=== PATIENT | male | born 1980 | race Caucasian/White ===

== ENCOUNTER 2018-09-07 14:09 | Emergency (ER) | payer MEDICAID, SELFPAY ==
[2018-09-07 14:12] VITALS: BP 160/103; PULSE 112; RESP 14; TEMP 36.8; O2SAT 97; BMI 27.8
--- NOTE | 2018-09-07 14:21 | CM.ED ---
Social Work Note Pt sent by the counseling center and will need to be evaluated by the counseling center. KANNAN Askew, HOME ENERGY CONSULTANT
--- NOTE | 2018-09-07 14:39 | CM.ED ---
Social Work Note [facility] being consulted to review for potential admission for detox program. No mental health concerns presenting. PLAN: [facility] to evaluate. KANNAN Askew, HEMALATHA
--- NOTE | 2018-09-07 15:41 | ED.DEP ---
ED Disposition - Plan for ED Patient: Disposition: Home or Assisted Living Instructions: ED Alcohol Intoxication Referrals: Gulshan Grove FREIGHT TRAFFIC CONSULTANT-C [Primary Care Provider] - As Needed
--- NOTE | 2018-09-07 15:42 | DCINST.ED_ITS ---
ED Disposition - Plan for ED Patient: Disposition: Home or Assisted Living Instructions: ED Alcohol Intoxication Referrals: Gulshan Grove INSTRUMENTATION TECHNICIAN-C [Primary Care Provider] - As Needed
--- NOTE | 2018-09-07 15:42 | ED.VISSUMM ---
- ER Visit Summary Date of Service: 09/07/18 Chief Complaint: Requesting detox. History of Present Illness: The patient is a 37 M history of alcohol abuse for last 20 years. States is been alcoholic since he was 17. Patient states he drinks a half a gallon to 20% vodka every day. His last drink was about 9 AM this morning. He has been through detox multiple times in the last 6 months. Physical Examination: Well-appearing young male. Vital signs are stable. He is afebrile. No distress. HEENT exam unremarkable. Neck nontender. Lungs clear to auscultation bilaterally. Heart regular rate and rhythm no murmur. Abdomen soft nontender. Normal bowel sounds no peritoneal signs. Patient is moving all 4 extremities. Neurologically is awake and alert. Following commands. Test Results: None Emergency Department Course and Treatment: Evaluate the patient. They contacted [facility] who was able to get the patient in and will help find his detox at a facility in [place]. His significant other is going to drive and facility at this time. Treatment Plan: Follow-up with the detox facility and masculine. Disposition: Discharge Impression: Acute on chronic alcoholism Requesting detox Acute intoxication This note was generated with [employer] dictation software. It may contain incorrect words, spelling, and punctuation that were not noted in review of the chart prior to signing ED Disposition - Plan for ED Patient: Disposition: Home or Assisted Living Instructions: ED Alcohol Intoxication Referrals: Gulshan Grove NP-C [Primary Care Provider] - As Needed
--- NOTE | 2018-09-07 15:45 | ED.DCSUM_ITS ---
- ER Visit Summary Date of Service: 09/07/18 Chief Complaint: Requesting detox. History of Present Illness: The patient is a 37 M history of alcohol abuse for last 20 years. States is been alcoholic since he was 17. Patient states he drinks a half a gallon to 20% vodka every day. His last drink was about 9 AM this morning. He has been through detox multiple times in the last 6 months. Physical Examination: Well-appearing young male. Vital signs are stable. He is afebrile. No distress. HEENT exam unremarkable. Neck nontender. Lungs clear to auscultation bilaterally. Heart regular rate and rhythm no murmur. Abdomen soft nontender. Normal bowel sounds no peritoneal signs. Patient is moving all 4 extremities. Neurologically is awake and alert. Following commands. Test Results: None Emergency Department Course and Treatment: Evaluate the patient. They contacted the [facility] who was able to get the patient in and will help find his detox at a facility in [place]. His significant other is going to drive and facility at this time. Treatment Plan: Follow-up with the detox facility and masculine. Disposition: Discharge Impression: Acute on chronic alcoholism Requesting detox Acute intoxication This note was generated with [employer] dictation software. It may contain incorrect words, spelling, and punctuation that were not noted in review of the chart prior to signing ED Disposition - Plan for ED Patient: Disposition: Home or Assisted Living Instructions: ED Alcohol Intoxication Referrals: Gulshan Grove NP-C [Primary Care Provider] - As Needed
[2018-09-07 15:50] VITALS: BP 144/106; PULSE 109; RESP 14; O2SAT 96
--- NOTE | 2018-09-07 15:50 | ED.RN ---
pt given d/c instructions by dr. arroyo. [facility]. orellana stable in ed. no s/s of acute distress. pt ambulated without issue from department. girlfriend encourage to take pt directly to other facility. richard mari rn [id number]
== END 2018-09-07 15:54 | disposition home or self-care (01) ==
PROVIDERS: Emergency Provider Emergency Medicine; Family Provider Nurse Practitioner Primary Care; PCP Nurse Practitioner Primary Care
DX: F10.229 Alcohol dependence with intoxication, unspecified (principal); Y90.9 Presence of alcohol in blood, level not specified; F32.9 Major depressive disorder, single episode, unspecified; I10 Essential (primary) hypertension; F17.220 Nicotine dependence, chewing tobacco, uncomplicated; Z79.899 Other long term (current) drug therapy
CPT/HCPCS: 99282

== ENCOUNTER 2018-09-25 17:26 | Inpatient (IN) | payer MEDICAID, SELFPAY ==
[2018-09-25] VITALS (7 sets, daily range): BP systolic 138–158; BP diastolic 89–93; PULSE 80–105; RESP 16; TEMP 36.6–36.9; O2SAT 95–99; BMI 28.2; BMI 28.0
--- NOTE | 2018-09-25 18:08 | EKG12_ITS ---
Test Reason : Blood Pressure : / mmHG Vent. Rate : 088 BPM Atrial Rate : 088 BPM P-R Int : 150 ms QRS Dur : 112 ms QT Int : 378 ms P-R-T Axes : 050 051 046 degrees QTc Int : 457 ms Normal sinus rhythm Normal ECG Confirmed by PAM ESQUIVEL, LANETTE ([id number]), social media editor BRUCE LONGO ([id number]) on 09/27/2018 1:34:19 PM Referred By: Antonio Stock Confirmed By:LANETTE OROZCO MD
[2018-09-25] MEDS: chlordiazePOXIDE 25 MG Capsule 50 MG PO (18:29)
[2018-09-25] MEDS: 0.9% Normal Saline 1,000 ML 1000 ML IV (18:29)
[2018-09-25] MEDS: 0.9% Normal Saline 1,000 ML 150 ML IV (18:29)
[2018-09-25 18:44] LABS: Absolute Lymphocyte Count 1.91 X10^3/ul (0.83-4.51); Absolute Neutrophil Count 5.2 X10^3/uL (2.0-7.7); Basophil# 0.11 X10^3/uL; Basophil% 1.4 % (0-1); Eosinophil# 0.03 X10^3/uL; Eosinophils% 0.4 % (0-5); Hemoglobin 14.8 g/dl (13.0-16.5); Lymphocyte # 1.91 X10^3/ul (4.0); Lymphocyte % 24.3 % (19-41); Mean Corp Hgb Conc 32.9 g/gl (32-36); Mean Corpuscular Hgb 29.6 pg (27.0-32.0); Mean Platelet Vol. 8.7 fl (6.2-12.0); Monocyte# 0.54 X10^3/uL; Monocyte% 6.9 % (0-10); Neutrophil % 66.1 % (47-70); Platelet Count 337 K/mm3 (150-450); RBC Distribution Width SD 52.3 fl (35.1-43.9); White Blood Count 7.9 K/mm3 (4.4-11.0)
[2018-09-25 18:45] LABS: POSITIVE COUNT NO; POSITIVE DIFFERENTIAL NO; POSITIVE MORPHOLOGY NO
[2018-09-25 18:48] LABS: ALB/GLOB Ratio 1.1 RATIO (0.9-2.4); AST(SGOT) 29 U/L (15-37); Alanine Aminotransfer ALT/SGPT 40 U/L (16-61); Albumin, Serum 3.7 g/dL (3.2-5.0); Alkaline Phosphatase 77 U/L (45-117); Anion Gap 11 (5-15); BUN 12 mg/dL (7-18); BUN/Creat Ratio 14.1 RATIO (10-20); Calcium,Total 8.2 mg/dL (8.5-10.1); Chloride 104 mmol/L (98-107); Creatinine, Serum 0.85 mg/dL (0.70-1.30); EST Glomerular Filtration Rate 108 mL/min (>60); Est Glom Filt Rate - Afr Amer 130 mL/min (>60); Estimated Creatinine Clearance 139.69 ml/min; Globulin 3.3 g/dL (2.2-4.2); Glucose 95 mg/dL (74-106); Lipase 265 U/L (73-393); Potassium 3.4 mmol/L (3.5-5.1); Sodium Level 140 mmol/L (136-145)
[2018-09-25 18:54] LABS: Amphetamine Urine VISTA NEGATIVE (<1000 ng/mL); Barbiturate Urine VISTA POSITIVE (< 200 ng/mL); Benzodiazepine Urine VISTA POSITIVE (< 200 ng/mL); Cocaine Urine VISTA NEGATIVE (< 300 ng/mL); Ecstacy Urine VISTA NEGATIVE (< 500 ng/mL); Methadone Urine VISTA NEGATIVE (< 300 ng/mL); PCP Urine VISTA NEGATIVE (< 25 ng/mL); THC Urine VISTA NEGATIVE (< 50 ng/mL); Vista UDS pH Range 6
--- NOTE | 2018-09-25 19:02 | ED.VISSUMM ---
- ER Visit Summary Date of Service: 09/25/18 Chief Complaint: [Alcohol withdrawal] History of Present Illness: The patient is a 37 M [presents the emergency department with complaint of alcohol withdrawal. Patient states that he is an alcoholic and he had his last drink last night. Patient normally drinks 2/5 of vodka daily at the minimum. Patient states that he went through detox about 3 weeks ago. [facility] called [facility] and was told to come to the emergency department. Patient describes feeling shaky and anxious. He denies any abdominal pain or chest pain. He has had nausea but no vomiting.] Physical Examination: [HEENT-PERRLA, EOMI. Cranial nerves II through XII grossly intact. TMs clear. Mucous membranes moist. No adenopathy. Cardiovascular-regular and tachycardic. No murmurs auscultated. Lungs-clear to auscultation, chest wall stable without crepitus or subcu emphysema Abdomen-normoactive bowel sounds, soft, nontender, no rebound or rigidity, no peritoneal signs. Neuro [id number] and heel colon testing within normal limits, negative Romberg, negative pronator drift, fundi benign. Patient does have a fine tremor noted. Extremities-intact ?4, normal range of motion, normal pulses, atraumatic] Test Results: [EKG obtained on arrival showed a sinus rhythm with a ventricular rate of 88 bpm. CBC with differential obtained showed a white count of 7.9, hemoglobin 14.8, hematocrit 45, platelets 337. Chemistries were unremarkable. LFTs were normal. Toxicology screen was positive for benzos and barbiturates. Alcohol level is pending.] Emergency Department Course and Treatment: [Patient was given normal saline and was given Librium 50 mg p.o.] Treatment Plan: [Admit for alcohol withdrawal and for detox.] Disposition: [Admit] Impression: [Alcohol withdrawal] This note was generated with [employer] dictation software. It may contain incorrect words, spelling, and punctuation that were not noted in review of the chart prior to signing ED Disposition - Plan for ED Patient: Referrals: Gulshan Grove NP-C [Primary Care Provider] -
--- NOTE | 2018-09-25 19:06 | ED.DCSUM_ITS ---
- ER Visit Summary Date of Service: 09/25/18 Chief Complaint: [Alcohol withdrawal] History of Present Illness: The patient is a 37 M [presents the emergency department with complaint of alcohol withdrawal. Patient states that he is an alcoholic and he had his last drink last night. Patient normally drinks 2/5 of vodka daily at the minimum. Patient states that he went through detox about 3 weeks ago. [facility] and was told to come to the emergency department. Patient describes feeling shaky and anxious. He denies any abdominal pain or chest pain. He has had nausea but no vomiting.] Physical Examination: [HEENT-PERRLA, EOMI. Cranial nerves II through XII grossly intact. TMs clear. Mucous membranes moist. No adenopathy. Cardiovascular-regular and tachycardic. No murmurs auscultated. Lungs-clear to auscultation, chest wall stable without crepitus or subcu emphysema Abdomen-normoactive bowel sounds, soft, nontender, no rebound or rigidity, no peritoneal signs. Neuro mgfi-pjbfrb-kbqv and heel colon testing within normal limits, negative Romberg, negative pronator drift, fundi benign. Patient does have a fine tremor noted. Extremities-intact ?4, normal range of motion, normal pulses, atraumatic] Test Results: [EKG obtained on arrival showed a sinus rhythm with a ventricular rate of 88 bpm. CBC with differential obtained showed a white count of 7.9, hemoglobin 14.8, hematocrit 45, platelets 337. Chemistries were unremarkable. LFTs were normal. Toxicology screen was positive for benzos and barbiturates. Alcohol level is pending.] Emergency Department Course and Treatment: [Patient was given normal saline and was given Librium 50 mg p.o.] Treatment Plan: [Admit for alcohol withdrawal and for detox.] Disposition: [Admit] Impression: [Alcohol withdrawal] This note was generated with [employer] dictation software. It may contain incorrect words, spelling, and punctuation that were not noted in review of the chart prior to signing ED Disposition - Plan for ED Patient: Referrals: Gulshan Grove NP-C [Primary Care Provider] -
--- NOTE | 2018-09-25 19:10 | HP.PCM_ITS ---
Problem List (1) Alcohol dependence Status: Chronic (2) Nicotine abuse Status: Chronic (3) Alcohol withdrawal Status: Acute (4) HTN (hypertension) Status: Chronic (5) Depression Status: Chronic History of Present Illness Date of Admission: 09/25/18 Chief Complaint: alcohol withdrawal The patient is a 37 year old M with a significant history of hypertension; tobacco abuse; alcohol dependence and depression who presented to the emergency department because of alcohol withdrawal symptoms for 1 day. He reports his symptoms as tremors, diaphoresis, headache, restless legs and occasional chest pain. He denies any nausea or vomiting. He drinks 2/5 of 20% of vodka every day and at times more. He reported he called the [facility] and he was instructed to come to the emergency department. He reports that he was discharged from [facility] at [place], [place] about a week ago. He thinks he was on phenobarbital. He reports that he was in [facility] recently and he fell while intoxicated at the intermediate. Reportedly in the past he has been to [employer] meetings. Past Medical History Past Medical History (Chronic Problems): Chronic Problems Alcohol dependence (Chronic) Nicotine abuse (Chronic) HTN (hypertension) (Chronic) Depression (Chronic) Allergies No Known Allergies Allergy (Verified 09/25/18 17:27) Home Medications: Ambulatory Orders Medication Instructions Recorded Amlodipine Besylate 10 mg PO DAILY 09/07/18 Sertraline HCl [Zoloft] 200 mg PO DAILY 09/07/18 Surgical History: no surgical history Psychiatric History: Anxiety, Depression Lives: With Family Smoking Status: Current every day smoker Tobacco Use: Chew Alcohol: Heavy Drugs: None - *Family History Maternal History Items: - - Depression, anxiety and alcoholism Paternal History Items: - - Depression, anxiety and alcoholism Review of Systems Constitutional: Denies: Chills, Fever, Weight Change HEENT: Reports: Head Aches. Denies: Sinus Congestion, Sinus Drainage Cardiovascular: Reports: Chest Pain. Denies: Palpitations Respiratory: Denies: Cough, Shortness of breath at rest, Sputum production Gastrointestinal: Denies: Abdominal Pain, Nausea, Vomiting Genitourinary: Denies: Dysuria Musculoskeletal: Denies: Joint Pain, Joint Tenderness Skin: Denies: Rash, Wounds Neurological: Denies: Numbness, Tingling, Focal weakness Psychiatric: Reports: Anxiety, Depression. Denies: Homicidal Ideations, Suicidal Ideations Hematologic/ Lymphatic: Denies: Easy Bruising, Easy Bleeding VTE Information - Inpt Only VTE Present on Admission: No VTE Mechan Device Prophylaxis: None VTE Pharm Prophylaxis ordered?: No Reason prophylaxis not ordered:: Treatment Not Indicated - Low risk. Encouraged to ambulate. Patient Problems: Active and Suspected Problems Alcohol withdrawal (Acute) - Physical Exam General: Alert, Oriented x3, Cooperative HEENT: Atraumatic, PERRLA, EOMI, Normocephalic Neck: Supple, No JVD, Negative Carotid Bruits Lungs: Clear to auscultation, Normal air movement Cardiovascular: No murmurs, Tachycardic Abdomen: Bowel Sounds Present, Soft, Non Tender Extremities: No edema, Capillary Refill Less than 3 Seconds Skin: No rashes, No breakdown Musculoskeletal: No Tenderness to Palpation of Joints or Extremities Neurological: - - Tremors on outstretched hands. Psych/Mental Status: Anxious Vital Signs Temp Pulse Resp BP Pulse Ox 98.2 F 105 H 16 144/89 H 98 09/25/18 17:27 09/25/18 17:27 09/25/18 17:27 09/25/18 17:27 09/25/18 17:27 Oxygen Delivery Method Room Air Weight: 99.79 kg Body Mass Index (BMI) 28.2 Laboratory Tests Past 24 Hrs 09/25/18 09/25/18 09/25/18 18:20 18:20 18:20 WBC 7.9 RBC 5.00 Hgb 14.8 Hct 45.0 MCV 90.0 MCH 29.6 MCHC 32.9 RDW 16.0 H RDW Differential 52.3 H Plt Count 337 MPV 8.7 Immature Gran % (Auto) 0.900 Neut % (Auto) 66.1 Lymph % (Auto) 24.3 [place] % (Auto) 6.9 Eos % (Auto) 0.4 Baso % (Auto) 1.4 H Absolute Neuts (auto) 5.2 Absolute Lymphs (auto) 1.91 Total Counted Not Reportable Sodium 140 Potassium 3.4 L Chloride 104 Carbon Dioxide 25.0 Anion Gap 11 BUN 12 Creatinine 0.85 Estim Creat Clear Calc 139.69 Est GFR (MDRD) Af Amer 130 Est GFR (MDRD) Non-Af 108 BUN/Creatinine Ratio 14.1 Glucose 95 Calcium 8.2 L Total Bilirubin 0.20 AST 29 ALT 40 Alkaline Phosphatase 77 Total Protein 7.0 Albumin 3.7 Globulin 3.3 Albumin/Globulin Ratio 1.1 Lipase 265 Urine Opiates Screen Urine Methadone Screen Ur Barbiturates Screen Ur Phencyclidine Scrn Ur Amphetamines Screen U Methamphetamin-MDMA U Benzodiazepines Scrn Urine Cocaine Screen U Cannabinoids Screen Ur Drug Screen Comment Ethyl Alcohol Pending 09/25/18 18:30 WBC RBC Hgb Hct MCV MCH MCHC RDW RDW Differential Plt Count MPV Immature Gran % (Auto) Neut % (Auto) Lymph % (Auto) [place] % (Auto) Eos % (Auto) Baso % (Auto) Absolute Neuts (auto) Absolute Lymphs (auto) Total Counted Sodium Potassium Chloride Carbon Dioxide Anion Gap BUN Creatinine Estim Creat Clear Calc Est GFR (MDRD) Af Amer Est GFR (MDRD) Non-Af BUN/Creatinine Ratio Glucose Calcium Total Bilirubin AST ALT Alkaline Phosphatase Total Protein Albumin Globulin Albumin/Globulin Ratio Lipase Urine Opiates Screen NEGATIVE Urine Methadone Screen NEGATIVE Ur Barbiturates Screen POSITIVE H Ur Phencyclidine Scrn NEGATIVE Ur Amphetamines Screen NEGATIVE U Methamphetamin-MDMA NEGATIVE U Benzodiazepines Scrn POSITIVE H Urine Cocaine Screen NEGATIVE U Cannabinoids Screen NEGATIVE Ur Drug Screen Comment Ethyl Alcohol Assessment/Plan All Active Problems Alcohol withdrawal (Acute) The patient is a 37 year old M with a significant history of hypertension; tobacco abuse; alcohol dependence and depression who presented to the emergency department because of alcohol withdrawal symptoms. Alcohol dependence and withdrawal Admitted to the [facility] consult[facility] Place on thiamine, multivitamin, folic acid and Librium protocol. Clonidine, methocarbamol and Vistaril prn ordered Ibuprofen for headache Hypokalemia On admission his potassium was 3.4 Potassium supplementation ordered Etiology likely due to alcoholism Magnesium level ordered Trend BMP Hypertension On admission his blood pressure was not within goal Amlodipine continued Etiology: Likely from alcohol withdrawal plus benign essential hypertension Trend blood pressures and adjust blood pressure medications Tobacco abuse Chew tobacco Counseled Inpatient consult smoking cessation Nicotine patch ordered. Depression Zoloft continued DVT prophylaxis: low risk encourage ambulation Code Visit Inpatient E&M: 58336 Init Hosp L3
[2018-09-25 21:16] LABS: Magnesium 1.8 mg/dL (1.6-2.6)
--- NOTE | 2018-09-25 22:50 | NURSING ---
Patient refused seizure precautions, he states that he has never had a seizure.
[2018-09-25] MEDS: chlordiazePOXIDE 25 MG Capsule PO (23:40)
[2018-09-25] MEDS: hydrOXYzine PAM 25 MG Capsule 50 MG PO (23:46)
[2018-09-26] MEDS: Ibuprofen 400 MG Tablet PO ×2 (00:22→09:03)
[2018-09-26] MEDS: cloNIDine HCl 0.1 MG Tablet PO ×3 (00:22→18:08)
[2018-09-26 03:53] VITALS: BP 125/86; PULSE 65; RESP 16; TEMP 36.3; O2SAT 99
[2018-09-26 05:48] VITALS: BP 122/89; PULSE 62; RESP 16; TEMP 36.2; O2SAT 99
[2018-09-26] MEDS: hydrOXYzine PAM 25 MG Capsule 50 MG PO (05:51)
[2018-09-26] MEDS: chlordiazePOXIDE 25 MG Capsule PO ×3 (05:51→18:08)
[2018-09-26 06:50] VITALS: O2SAT 98
[2018-09-26 07:13] LABS: Anion Gap 7 (5-15); BUN 8 mg/dL (7-18); BUN/Creat Ratio 9.4 RATIO (10-20); Calcium,Total 7.9 mg/dL (8.5-10.1); Chloride 105 mmol/L (98-107); Creatinine, Serum 0.85 mg/dL (0.70-1.30); EST Glomerular Filtration Rate 108 mL/min (>60); Est Glom Filt Rate - Afr Amer 130 mL/min (>60); Estimated Creatinine Clearance 139.69 ml/min; Glucose 85 mg/dL (74-106); Potassium 3.6 mmol/L (3.5-5.1); Sodium Level 140 mmol/L (136-145)
[2018-09-26] MEDS: amLODIPine 10 MG Tablet PO (08:51)
[2018-09-26] MEDS: Sertraline 100 MG Tablet 200 MG PO (08:51)
[2018-09-26] MEDS: Multivitamins,Therapeutic Tablet 1 TABLET PO (08:52)
[2018-09-26] MEDS: Folic Acid 1 MG Tablet PO (08:52)
[2018-09-26] MEDS: Thiamine Hydrochloride 100 MG Tablet PO (08:52)
--- NOTE | 2018-09-26 09:22 | PCM.PN.HOSP ---
Patient Problems: Active and Suspected Problems Alcohol withdrawal (Acute) Subjective: Patient was seen and examined. No acute events overnight. Admitted yesterday with acute alcohol withdrawal. Denies any chest pain or dizziness or palpitations. Vitals/I&O's: Vital Signs Temp Pulse Resp BP Pulse Ox 97.2 F L 62 16 122/89 H 99 09/26/18 05:48 09/26/18 05:48 09/26/18 05:48 09/26/18 05:48 09/26/18 05:48 Oxygen Delivery Method Room Air Weight: 99 kg Body Mass Index (BMI) 28.0 Intake and Output for Last 24 Hours 09/24/18 09/25/18 09/26/18 23:59 23:59 23:59 Intake Total 470 / 470 200 / 200 Balance 470 / 470 200 / 200 General: Alert, Oriented x3, Cooperative, No apparent distress HEENT: Atraumatic, PERRLA, EOMI, Normocephalic Oral: Moist Mucosa Neck: Supple, No JVD, Negative Carotid Bruits Lungs: Clear to auscultation, Normal air movement Cardiovascular: Regular rate, Regular Rhythm, Normal S1, Normal S2, No murmurs Abdomen: Bowel Sounds Present, Soft, Non Tender, Non-Distended, No Hepato-splenomegaly Extremities: No edema Skin: No rashes, No breakdown Musculoskeletal: No Tenderness to Palpation of Joints or Extremities Lymphatic: No Cervical, Supraclavicular, or Inguinal Adenopathy Neurological: Cranial nerves II-XII grossly intact Psych/Mental Status: Normal Affect, Appropriate Laboratory Results 09/25/18 18:20: WBC 7.9, RBC 5.00, Hgb 14.8, Hct 45.0, MCV 90.0, MCH 29.6, MCHC 32.9, RDW 16.0 H, RDW Differential 52.3 H, Plt Count 337, MPV 8.7, Immature Gran % (Auto) 0.900, Neut % (Auto) 66.1, Lymph % (Auto) 24.3, [place] % (Auto) 6.9, Eos % (Auto) 0.4, Baso % (Auto) 1.4 H, Absolute Neuts (auto) 5.2, Absolute Lymphs (auto) 1.91, Total Counted Not Reportable 09/25/18 18:20: Sodium 140, Potassium 3.4 L, Chloride 104, Carbon Dioxide 25.0, Anion Gap 11, BUN 12, Creatinine 0.85, Estim Creat Clear Calc 139.69, Est GFR (MDRD) Af Amer 130, Est GFR (MDRD) Non-Af 108, BUN/Creatinine Ratio 14.1, Glucose 95, Calcium 8.2 L, Total Bilirubin 0.20, AST 29, ALT 40, Alkaline Phosphatase 77, Total Protein 7.0, Albumin 3.7, Globulin 3.3, Albumin/Globulin Ratio 1.1, Lipase 265 09/25/18 18:20: Ethyl Alcohol 96.0 09/25/18 18:20: Magnesium 1.8 09/25/18 18:30: Urine Opiates Screen NEGATIVE, Urine Methadone Screen NEGATIVE, Ur Barbiturates Screen POSITIVE H, Ur Phencyclidine Scrn NEGATIVE, Ur Amphetamines Screen NEGATIVE, U Methamphetamin-MDMA NEGATIVE, U Benzodiazepines Scrn POSITIVE H, Urine Cocaine Screen NEGATIVE, U Cannabinoids Screen NEGATIVE, Ur Drug Screen Comment 09/26/18 06:30: Sodium 140, Potassium 3.6, Chloride 105, Carbon Dioxide 28.0, Anion Gap 7, BUN 8, Creatinine 0.85, Estim Creat Clear Calc 139.69, Est GFR (MDRD) Af Amer 130, Est GFR (MDRD) Non-Af 108, BUN/Creatinine Ratio 9.4 L, Glucose 85, Calcium 7.9 L Current Medications Amlodipine Besylate (Norvasc) 10 mg PO DAILY [facility] Last Admin: 09/26/18 08:51 Dose: 10 mg Bisacodyl (Dulcolax) 5 mg PO DAILY PRN PRN PRN Reason: Constipation Chlordiazepoxide (Librium) 50 mg PO Q6H [facility]; Taper Stop: 09/29/18 01:59 Last Admin: 09/26/18 05:51 Dose: 50 mg Clonidine (Catapres) 0.1 mg PO Q6H PRN PRN Reason: Alcohol Withdrawal Last Admin: 09/26/18 00:22 Dose: 0.1 mg Dicyclomine HCl (Bentyl) 20 mg PO Q6H PRN PRN PRN Reason: abdominal discomfort [facility] ([facility] Acid) [facility] Last Admin: 09/26/18 08:52 Dose: 1 mg Hydroxyzine Pamoate (Vistaril Pamoate Capsule) 50 mg PO Q6H PRN PRN PRN Reason: Mild Anxiety (score 1/3) Last Admin: 09/26/18 05:51 Dose: 50 mg Ibuprofen (Motrin) 400 mg PO Q6H PRN PRN PRN Reason: HEADACHE Last Admin: 09/26/18 09:03 Dose: 400 mg Magnesium Hydroxide (Milk Of Magnesia) 30 ml PO DAILY PRN PRN PRN Reason: Constipation Methocarbamol (Methocarbamol) 750 mg PO Q6H PRN PRN PRN Reason: Muscle Aches [facility]ivitamins (Multivitamin) [facility] tablet [facility] Last Admin: 09/26/18 08:52 Dose: 1 tablet Nicotine (Nicoderm Cq (Pbkc)) 21 mg TRANSDERM. DAILY [facility] Last Admin: 09/26/18 08:52 Dose: 21 mg Sertraline HCl (Zoloft) 200 mg PO DAILY [facility] Last Admin: 09/26/18 08:51 Dose: 200 mg Sodium Chloride () 5 - 15 ml IV UD PRN PRN Reason: SALINE FLUSH Thiamine HCl (Vitamin B1) [facility] Last Admin: 09/26/18 08:52 Dose: 100 mg Medical Necessity - Tobacco Use Smoking Status: Current every day smoker Tobacco Use: Chew Assessment/Plan All Active Problems Alcohol withdrawal (Acute) 37-year-old male with past medical history of hypertension, nicotine use disorder, alcohol dependence, depression who comes in with acute alcohol withdrawal symptoms for medical stabilization under the [facility]. 1. Acute alcohol withdrawal, in a patient with known alcohol use disorder, improving, last CIWA score was 6 Plan: Continue per [facility] protocol 2. Hypokalemia, resolved 3. Nicotine dependence, counseled to stop 4. Depression, on Zoloft 5. Hypertension, on amlodipine, blood pressures controlled, continue to monitor 6. DVT prophylaxis with early ambulation Code Visit Inpatient E&M: 57999 Subs Hosp L2
[2018-09-26 12:30] VITALS: BP 145/97; PULSE 82; RESP 16; TEMP 37.1; O2SAT 100
--- NOTE | 2018-09-26 15:08 | [facility] ---
Patient has appointment with Nolan Macedo, counselor at [facility] on 10/01/2018 for assessment and consult for possible Vivitrol induction per patient request.
--- NOTE | 2018-09-26 15:32 | CHAPLAIN ---
Type of Pastoral Visit _x__ Initial Visit ___ Follow-up Visit ___ On-call Visit ___ General Patient Visit ___ Spiritual Assessment ___ Family Conference ___ Bereavement ___ Rapid Response ___ Code Blue ___ Other (describe below) Pastoral Care Referral From _x__ Patient ___ Family ___ Nurse ___ Physician ___ Corrections Officer ___ Chief Sales Officer ___ Other (describe below) Sacrament/Intervention _x__ Active listening ___ Anointing ___ Jainism ___ Bereavement ___ Communion _x__ Yasmin exploration ___ _x__ Life review _x__ Prayer ___ Reconciliation ___ Sacrament of Sick _x__ Supportive presence ___ Wedding ___ Other (describe below) Pastoral Comments life story and situation explained; pt says he would desire to be in a sabianism again; pt was active in sabianism until age 19; pt going through divorce and has had attempts at sobriety before; pt plans to be active in AA again and to try counseling
[2018-09-26 18:09] VITALS: BP 145/101; PULSE 74; RESP 16; TEMP 37.1; O2SAT 98
[2018-09-26 20:51] VITALS: BP 128/79; PULSE 68; RESP 16; TEMP 36.7; O2SAT 98
[2018-09-27] VITALS (9 sets, daily range): BP systolic 126–155; BP diastolic 79–109; PULSE 55–92; RESP 14–16; TEMP 36.2–36.8; O2SAT 96–100
[2018-09-27] MEDS: chlordiazePOXIDE 25 MG Capsule PO ×3 (02:38→18:02)
[2018-09-27] MEDS: Folic Acid 1 MG Tablet PO (07:55)
[2018-09-27] MEDS: Thiamine Hydrochloride 100 MG Tablet PO (07:55)
[2018-09-27] MEDS: Multivitamins,Therapeutic Tablet 1 TABLET PO (07:55)
--- NOTE | 2018-09-27 08:36 | PN_ITS ---
Patient Problems: Active and Suspected Problems Alcohol withdrawal (Acute) Subjective: Patient seen and examined. Denies any complains. 12 point ROS is negative Objective: Physical exam: General: Alert, Oriented x3, Cooperative, No apparent distress HEENT: Atraumatic, PERRLA, EOMI, Normocephalic Oral: Moist Mucosa Neck: Supple, No JVD, Negative Carotid Bruits Lungs: Clear to auscultation, Normal air movement Cardiovascular: Regular rate, Regular Rhythm, Normal S1, Normal S2, No murmurs Abdomen: Bowel Sounds Present, Soft, Non Tender, Non-Distended, No Hepato- splenomegaly Extremities: No edema Skin: No rashes, No breakdown Musculoskeletal: No Tenderness to Palpation of Joints or Extremities Lymphatic: No Cervical, Supraclavicular, or Inguinal Adenopathy Neurological: Cranial nerves II-XII grossly intact Psych/Mental Status: Normal Affect, Appropriate Vitals/I&O's: Vital Signs Temp Pulse Resp BP Pulse Ox 97.9 F 62 16 126/79 H 98 09/27/18 02:00 09/27/18 07:55 09/27/18 06:00 09/27/18 02:00 09/27/18 07:26 Oxygen Delivery Method Room Air Weight: 99 kg Body Mass Index (BMI) 28.0 Intake and Output for Last 24 Hours 09/25/18 09/26/18 09/27/18 23:59 23:59 23:59 Intake Total 470 / 470 1500 / 1500 1200 / 1200 Balance 470 / 470 1500 / 1500 1200 / 1200 Laboratory Results 09/26/18 06:30: Magnesium 2.0 Current Medications Amlodipine Besylate (Norvasc) 10 mg PO DAILY SCOTT Last Admin: 09/26/18 08:51 Dose: 10 mg Bisacodyl (Dulcolax) 5 mg PO DAILY PRN PRN PRN Reason: Constipation Chlordiazepoxide (Librium) 50 mg PO Q8H SCOTT; Taper Stop: 09/29/18 01:59 Last Admin: 09/27/18 02:38 Dose: 50 mg Clonidine (Catapres) 0.1 mg PO Q6H PRN PRN Reason: Alcohol Withdrawal Last Admin: 09/26/18 18:08 Dose: 0.1 mg Dicyclomine HCl (Bentyl) 20 mg PO Q6H PRN PRN PRN Reason: abdominal discomfort [facility] Last Admin: 09/27/18 07:55 Dose: 1 mg Hydroxyzine Pamoate (Vistaril Pamoate Capsule) 50 mg PO Q6H PRN PRN PRN Reason: Mild Anxiety (score 1/3) Last Admin: 09/26/18 05:51 Dose: 50 mg Ibuprofen (Motrin) 400 mg PO Q6H PRN PRN PRN Reason: HEADACHE Last Admin: 09/26/18 09:03 Dose: 400 mg Magnesium Hydroxide (Milk Of Magnesia) 30 ml PO DAILY PRN PRN PRN Reason: Constipation Methocarbamol (Methocarbamol) 750 mg PO Q6H PRN PRN PRN Reason: Muscle Aches [facility]it[facility] ([facility]itamin) [facility] Last Admin: 09/27/18 07:55 Dose: 1 tablet Nicotine (Nicoderm Cq (Pbkc)) 21 mg TRANSDERM. DAILY [facility] Last Admin: 09/26/18 08:52 Dose: 21 mg Sertraline HCl (Zoloft) 200 mg PO DAILY [facility] Last Admin: 09/26/18 08:51 Dose: 200 mg Sodium Chloride () 5 - 15 ml IV UD PRN PRN Reason: SALINE FLUSH Thiamine [facility]amin B1) [facility] Last Admin: 09/27/18 07:55 Dose: 100 mg Medical Necessity - Tobacco Use Smoking Status: Current every day smoker Tobacco Use: Chew Assessment/Plan All Active Problems Alcohol withdrawal (Acute) 37-year-old male with past medical history of hypertension, nicotine use disorder, alcohol dependence, depression who comes in with acute alcohol withdrawal symptoms for medical stabilization under the [facility] program. 1. Acute alcohol withdrawal, in a patient with known alcohol use disorder, improved, CIWA score this morning is 1. Plan: Continue per [facility] protocol 2. Hypokalemia, resolved 3. Nicotine dependence, counseled to stop 4. Depression, on Zoloft 5. Hypertension, on amlodipine, blood pressures controlled, continue to monitor 6. DVT prophylaxis with early ambulation 7. Disposition: DC in am if stable Code Visit Inpatient E&M: 91490 Subs Hosp L2
[2018-09-27] MEDS: Sertraline 100 MG Tablet 200 MG PO (10:07)
[2018-09-27] MEDS: amLODIPine 10 MG Tablet PO (10:07)
--- NOTE | 2018-09-27 17:58 | CHAPLAIN ---
Type of Pastoral Visit ___ Initial Visit _x__ Follow-up Visit ___ On-call Visit ___ General Patient Visit ___ Spiritual Assessment ___ Family Conference ___ Bereavement ___ Rapid Response ___ Code Blue ___ Other (describe below) Pastoral Care Referral From _x__ Patient ___ Family ___ Nurse ___ Physician ___ Circuit Designer ___ Commercial Glazier ___ Other (describe below) Sacrament/Intervention _x__ Active listening ___ Anointing ___ Sikh ___ Bereavement ___ Communion _x__ Yasmin exploration ___ _x__ Life review _x__ Prayer ___ Reconciliation ___ Sacrament of Sick _x__ Supportive presence ___ Wedding ___ Other (describe below) Pastoral Comments
[2018-09-27] MEDS: cloNIDine HCl 0.1 MG Tablet PO (18:02)
[2018-09-27] MEDS: hydroCHLOROthiazide 12.5mg 12.5 MG PO (20:50)
[2018-09-28] MEDS: chlordiazePOXIDE 25 MG Capsule PO ×2 (01:57→12:48)
[2018-09-28 01:59] VITALS: BP 134/94; PULSE 76; RESP 14; TEMP 36.3
[2018-09-28 07:06] LABS: Anion Gap 6 (5-15); BUN 9 mg/dL (7-18); BUN/Creat Ratio 9.1 RATIO (10-20); Calcium,Total 8.6 mg/dL (8.5-10.1); Chloride 106 mmol/L (98-107); Creatinine, Serum 0.99 mg/dL (0.70-1.30); EST Glomerular Filtration Rate 90 mL/min (>60); Est Glom Filt Rate - Afr Amer 109 mL/min (>60); Estimated Creatinine Clearance 119.93 ml/min; Glucose 93 mg/dL (74-106); Potassium 4.1 mmol/L (3.5-5.1); Sodium Level 139 mmol/L (136-145)
--- NOTE | 2018-09-28 07:39 | DCINST_ITS ---
- Discharge Diagnoses Current Active Problems: Current Active and Chronic Problems Alcohol dependence (Chronic) Nicotine abuse (Chronic) Alcohol withdrawal (Acute) HTN (hypertension) (Chronic) Depression (Chronic) Reason(s) for Visit for Discharge Instructions: Alcohol withdrawal You will use the following diet at home:: Cardiac Your food should be the consistency of: Regular Your liquids should be the consistency of: Regular/Thin Discharge Activity: Return to Normal Activity Additional Instructions: Continue to take all your medications. Take note of your new medication. You need a repeat blood work within 1 week to look for electrolyte imbalances. Follow-up with the outpatient rehab program as planned. Allergies/Adverse Reactions: Allergies No Known Allergies Allergy (Verified 09/25/18 17:27) Medications to take at Discharge Amlodipine Besylate 10 mg PO DAILY 09/07/18 Sertraline HCl [Zoloft] 200 mg PO DAILY 09/07/18 Multivitamins,Therapeutic [Multivitamin] 1 tablet PO DAILYCM #30 tablet 09/28/18 Nicotine [Nicoderm Cq] 21 mg TRANSDERM. DAILY #30 patch 09/28/18 Thiamine Hydrochloride [Vitamin B1] 100 mg PO DAILYCM #30 tablet 09/28/18 hydroCHLOROthiazide [Hydrochlorothiazide] 12.5 mg PO DAILY #30 capsule 09/28/18 The following prescriptions were given: hydroCHLOROthiazide [Hydrochlorothiazide] 12.5 mg PO DAILY #30 capsule Multivitamins,Therapeutic [Multivitamin] 1 tablet PO DAILYCM #30 tablet Nicotine [Nicoderm Cq] 21 mg TRANSDERM. DAILY #30 patch Thiamine Hydrochloride [Vitamin B1] 100 mg PO DAILYCM #30 tablet Primary Care Physician: Gulshan Grove NP-C [Primary Care Provider] - Please follow up with your Primary Care Physician in: within 1-2 weeks Test Results: Test results from this visit will be discussed in further detail at your follow- up appointment, if applicable. Proposed Discharge Date: 09/28/18
--- NOTE | 2018-09-28 09:40 | PCM.DC.SUM ---
Discharge Date and Diagnosis - Problem List Patient Problems: Active and Suspected Problems Alcohol withdrawal (Acute) Date of Admission: 09/25/18 Date of Discharge: 09/28/18 - Primary Discharge Diagnosis Active and Suspected Problems Alcohol withdrawal (Acute) Uncontrolled hypertension Nicotine dependence Hypokalemia - Secondary Discharge Diagnosis Chronic Problems Alcohol dependence (Chronic) Nicotine abuse (Chronic) HTN (hypertension) (Chronic) Depression (Chronic) Hospital Course and Treatment Consultations 09/25/18 19:58 Consult: New [employer] Routine Consulting Provider: Consulted Physician Type:: Other * Specify below * Reason for consult:: Etoh withdrawal Summary of Care Provided: The patient is a 37 year old M past medical history of hypertension, nicotine use disorder, alcohol dependence, depression who comes in with acute alcohol withdrawal symptoms for medical stabilization under the [facility] protocol. Patient was admitted and monitored with improvement in his CIWA scores. He had hypokalemia on admission that was replaced. He was consulted to stop smoking, given nicotine replacement. Over the course of his admission, patient had uncontrolled blood pressure, was continued on his home amlodipine. Hydrochlorothiazide was added at the prior to discharge. No electrolyte imbalances seen on repeat BMP the next day. Patient has been advised to follow-up with his primary care doctor for repeat blood pressure check and also blood work within a week. He has plans to follow-up with an outpatient program with BP control and also follow-up at the counseling center in [facility]. Patient Problems: Active and Suspected Problems Alcohol withdrawal (Acute) Subjective: Patient was seen and examined. Denied any new complaints. Blood pressure was uncontrolled overnight. Better controlled this morning with start of hydrochlorothiazide. Denied any headaches or dizziness or palpitations or shortness of breath. Objective: Physical exam: General: Alert, Oriented x3, Cooperative, No apparent distress HEENT: Atraumatic, PERRLA, EOMI, Normocephalic Oral: Moist Mucosa Neck: Supple, No JVD, Negative Carotid Bruits Lungs: Clear to auscultation, Normal air movement Cardiovascular: Regular rate, Regular Rhythm, Normal S1, Normal S2, No murmurs Abdomen: Bowel Sounds Present, Soft, Non Tender, Non-Distended, No Hepato-splenomegaly Extremities: No edema Skin: No rashes, No breakdown Musculoskeletal: No Tenderness to Palpation of Joints or Extremities Lymphatic: No Cervical, Supraclavicular, or Inguinal Adenopathy Neurological: Cranial nerves II-XII grossly intact Psych/Mental Status: Normal Affect, Appropriate - Physical Exam Vital Signs Temp Pulse Resp BP Pulse Ox 97.4 F L 76 14 134/94 H 100 09/28/18 01:59 09/28/18 01:59 09/28/18 01:59 09/28/18 01:59 09/27/18 18:00 Oxygen Delivery Method Room Air Weight: 99 kg Body Mass Index (BMI) 28.0 Intake and Output for Last 24 Hours 09/26/18 09/27/18 09/28/18 23:59 23:59 23:59 Intake Total 1500 / 1500 1200 / 1200 Balance 1500 / 1500 1200 / 1200 Laboratory Tests Past 24 Hrs 09/28/18 06:30 Sodium 139 Potassium 4.1 Chloride 106 Carbon Dioxide 27.0 Anion Gap 6 BUN 9 Creatinine 0.99 Estim Creat Clear Calc 119.93 Est GFR (MDRD) Af Amer 109 Est GFR (MDRD) Non-Af 90 BUN/Creatinine Ratio 9.1 L Glucose 93 Calcium 8.6 Discharge Diet: Low fat/ Low Cholesterol, 2000 mg Sodium Diet Discharge Activity: Return to Normal Activity Home Medications: Medications to take at Discharge Amlodipine Besylate 10 mg PO DAILY 09/07/18 Sertraline HCl [Zoloft] 200 mg PO DAILY 09/07/18 Multivitamins,Therapeutic [Multivitamin] 1 tablet PO DAILYCM #30 tablet 09/28/18 Nicotine [Nicoderm Cq] 21 mg TRANSDERM. DAILY #30 patch 09/28/18 Thiamine Hydrochloride [Vitamin B1] 100 mg PO DAILYCM #30 tablet 09/28/18 hydroCHLOROthiazide [Hydrochlorothiazide] 12.5 mg PO DAILY #30 capsule 09/28/18 Following Prescrptions Were Given to Patient: hydroCHLOROthiazide [Hydrochlorothiazide] 12.5 mg PO DAILY #30 capsule Multivitamins,Therapeutic [Multivitamin] 1 tablet PO DAILYCM #30 tablet Nicotine [Nicoderm Cq] 21 mg TRANSDERM. DAILY #30 patch Thiamine Hydrochloride [Vitamin B1] 100 mg PO DAILYCM #30 tablet Primary Care Physician: Gulshan Grove NP-C [Primary Care Provider] - Please follow up with your Primary Care Physician in: within 1-2 weeks Disposition: Home Minutes spent on discharge:: 40 Patient Condition:: Stable Medical Necessity - Tobacco Use Smoking Status: Current every day smoker Tobacco Use: Chew Meaningful Use Info Meaningful Use Diagnoses (Choose all that apply): None applicable Code Visit Inpatient E&M: 64858 Disch Hosp
--- NOTE | 2018-09-28 09:44 | DS.PCM_ITS ---
Discharge Date and Diagnosis - Problem List Patient Problems: Active and Suspected Problems Alcohol withdrawal (Acute) Date of Admission: 09/25/18 Date of Discharge: 09/28/18 - Primary Discharge Diagnosis Active and Suspected Problems Alcohol withdrawal (Acute) Uncontrolled hypertension Nicotine dependence Hypokalemia - Secondary Discharge Diagnosis Chronic Problems Alcohol dependence (Chronic) Nicotine abuse (Chronic) HTN (hypertension) (Chronic) Depression (Chronic) Hospital Course and Treatment Consultations 09/25/18 19:58 Consult: New [employer] Routine Consulting Provider: Consulted Physician Type:: Other * Specify below * Reason for consult:: Etoh withdrawal Summary of Care Provided: The patient is a 37 year old M past medical history of hypertension, nicotine use disorder, alcohol dependence, depression who comes in with acute alcohol withdrawal symptoms for medical stabilization under the [facility] protocol. Patient was admitted and monitored with improvement in his CIWA scores. He had hypokalemia on admission that was replaced. He was consulted to stop smoking, given nicotine replacement. Over the course of his admission, patient had uncontrolled blood pressure, was continued on his home amlodipine. Hydrochlorothiazide was added at the prior to discharge. No electrolyte imbalances seen on repeat BMP the next day. Patient has been advised to follow- up with his primary care doctor for repeat blood pressure check and also blood work within a week. He has plans to follow-up with an outpatient program with BP control and also follow-up at the counseling center in [facility]. Patient Problems: Active and Suspected Problems Alcohol withdrawal (Acute) Subjective: Patient was seen and examined. Denied any new complaints. Blood pressure was uncontrolled overnight. Better controlled this morning with start of hydrochlorothiazide. Denied any headaches or dizziness or palpitations or shortness of breath. Objective: Physical exam: General: Alert, Oriented x3, Cooperative, No apparent distress HEENT: Atraumatic, PERRLA, EOMI, Normocephalic Oral: Moist Mucosa Neck: Supple, No JVD, Negative Carotid Bruits Lungs: Clear to auscultation, Normal air movement Cardiovascular: Regular rate, Regular Rhythm, Normal S1, Normal S2, No murmurs Abdomen: Bowel Sounds Present, Soft, Non Tender, Non-Distended, No Hepato- splenomegaly Extremities: No edema Skin: No rashes, No breakdown Musculoskeletal: No Tenderness to Palpation of Joints or Extremities Lymphatic: No Cervical, Supraclavicular, or Inguinal Adenopathy Neurological: Cranial nerves II-XII grossly intact Psych/Mental Status: Normal Affect, Appropriate - Physical Exam Vital Signs Temp Pulse Resp BP Pulse Ox 97.4 F L 76 14 134/94 H 100 09/28/18 01:59 09/28/18 01:59 09/28/18 01:59 09/28/18 01:59 09/27/18 18:00 Oxygen Delivery Method Room Air Weight: 99 kg Body Mass Index (BMI) 28.0 Intake and Output for Last 24 Hours 09/26/18 09/27/18 09/28/18 23:59 23:59 23:59 Intake Total 1500 / 1500 1200 / 1200 Balance 1500 / 1500 1200 / 1200 Laboratory Tests Past 24 Hrs 09/28/18 06:30 Sodium 139 Potassium 4.1 Chloride 106 Carbon Dioxide 27.0 Anion Gap 6 BUN 9 Creatinine 0.99 Estim Creat Clear Calc 119.93 Est GFR (MDRD) Af Amer 109 Est GFR (MDRD) Non-Af 90 BUN/Creatinine Ratio 9.1 L Glucose 93 Calcium 8.6 Discharge Diet: Low fat/ Low Cholesterol, 2000 mg Sodium Diet Discharge Activity: Return to Normal Activity Home Medications: Medications to take at Discharge Amlodipine Besylate 10 mg PO DAILY 09/07/18 Sertraline HCl [Zoloft] 200 mg PO DAILY 09/07/18 Multivitamins,Therapeutic [Multivitamin] 1 tablet PO DAILYCM #30 tablet 09/28/18 Nicotine [Nicoderm Cq] 21 mg TRANSDERM. DAILY #30 patch 09/28/18 Thiamine Hydrochloride [Vitamin B1] 100 mg PO DAILYCM #30 tablet 09/28/18 hydroCHLOROthiazide [Hydrochlorothiazide] 12.5 mg PO DAILY #30 capsule 09/28/18 Following Prescrptions Were Given to Patient: hydroCHLOROthiazide [Hydrochlorothiazide] 12.5 mg PO DAILY #30 capsule Multivitamins,Therapeutic [Multivitamin] 1 tablet PO DAILYCM #30 tablet Nicotine [Nicoderm Cq] 21 mg TRANSDERM. DAILY #30 patch Thiamine Hydrochloride [Vitamin B1] 100 mg PO DAILYCM #30 tablet Primary Care Physician: Gulshan Grove NP-C [Primary Care Provider] - Please follow up with your Primary Care Physician in: within 1-2 weeks Disposition: Home Minutes spent on discharge:: 40 Patient Condition:: Stable Medical Necessity - Tobacco Use Smoking Status: Current every day smoker Tobacco Use: Chew Meaningful Use Info Meaningful Use Diagnoses (Choose all that apply): None applicable Code Visit Inpatient E&M: 31743 Disch Hosp
[2018-09-28 10:00] VITALS: BP 142/107; PULSE 89; RESP 14; TEMP 36.4
[2018-09-28] MEDS: Multivitamins,Therapeutic Tablet 1 TABLET PO (10:04)
[2018-09-28] MEDS: Thiamine Hydrochloride 100 MG Tablet PO (10:04)
[2018-09-28] MEDS: Folic Acid 1 MG Tablet PO (10:04)
[2018-09-28] MEDS: hydroCHLOROthiazide 12.5mg 12.5 MG PO (10:04)
[2018-09-28] MEDS: amLODIPine 10 MG Tablet PO (10:05)
[2018-09-28] MEDS: Sertraline 100 MG Tablet 200 MG PO (10:05)
[2018-09-28 12:50] VITALS: BP 149/105; PULSE 85; RESP 16; TEMP 36.4; O2SAT 100
== END 2018-09-28 13:00 | disposition home or self-care (01) | DRG 775 ==
LOC: ED 18:18 → MS2 19:25
PROVIDERS: Admitting Provider Hospitalist; Emergency Provider Emergency Medicine; Family Provider Nurse Practitioner Primary Care; PCP Nurse Practitioner Primary Care; Referring Provider Hospitalist; Visit Provider Internal Medicine
DX: F10.239 Alcohol dependence with withdrawal, unspecified (principal); I10 Essential (primary) hypertension; E87.6 Hypokalemia; F32.9 Major depressive disorder, single episode, unspecified; F17.200 Nicotine dependence, unspecified, uncomplicated
CPT/HCPCS: 36415; 80048; 80053; 80307; 80320; 83690; 83735; 85025; 93005; 99282; 99406; J7030; G0480

== ENCOUNTER 2018-11-29 17:18 | Inpatient (IN) | payer MEDICAID, SELFPAY ==
[2018-09-25 19:47] VITALS: BMI 28.0
[2018-11-29 17:21] VITALS: BP 155/89; PULSE 107; RESP 17; TEMP 36.8; O2SAT 98; BMI 27.6
--- NOTE | 2018-11-29 19:54 | ED.DCSUM_ITS ---
- ER Visit Summary Date of Service: 11/29/18 Chief Complaint: [] Requesting alcohol detox treatment for alcohol withdrawal History of Present Illness: The patient is a 38 M [] reports a long history of alcoholism, hypertension, indicates he was detoxed treated for alcohol withdrawal and of October, he was able to stay sober for a few weeks, he began drinking again, today there was a dispute with the girlfriend who asked him to stop drinking so he stopped drinking at 10 AM today and slowly and gradually he feels a sense of jitteriness sense of unease sense of mental cloudiness he was able to go to work but did not feel well the symptoms intensified and he came to the emergency department asking for treatment for alcohol withdrawal and alcohol detox He states he has been taking all of his antidepressant medications as hypertension medications he has no appetite he has had normal bowel bladder habits he has no cardiovascular history no history of GI elements no history of cirrhosis denies other drug use Physical Examination: [] 160/80, heart rate 110 in the bed he has a very slight tremor, no distress General, no distress resting comfortably HEENT is generally unremarkable The neck is supple no adenopathy Cardiovascular, regular rate and rhythm Lungs, clear bilateral Abdomen, soft nontender Extremities, no clubbing cyanosis or edema Neurologic, awake alert answering questions appropriately moving all 4 extremities, he has a very slight tremor to the upper extremities he is awake alert answering questions appropriately there is no signs of mental cloudiness he answers all questions appropriately Test Results: [] Emergency Department Course and Treatment: [] His complaints and his history screening labs are obtained IV fluids IV Ativan we have asked the hospital see him for the management and disposition patient screening labs generally unremarkable alcohol about 250 Treatment Plan: [] Disposition: [] Pending evaluation by hospitalist Impression: [] Alcohol abuse disorder, alcohol withdrawal requesting detox This note was generated with [employer] software. It may contain incorrect words, spelling, and punctuation that were not noted in review of the chart prior to signing ED Disposition - Plan for ED Patient: Referrals: Gulshan Grove NP-C [Primary Care Provider] -
[2018-11-29] MEDS: Ondansetron 4 MG/2 ML Vial IV (20:08)
[2018-11-29] MEDS: 0.9% Normal Saline 1,000 ML 1000 ML IV (20:08)
[2018-11-29] MEDS: LORazepam 2 MG/ML Syringe 1 MG IV (20:08)
[2018-11-29 20:34] LABS: Absolute Lymphocyte Count 1.99 X10^3/ul (0.83-4.51); Basophil# 0.06 X10^3/uL; Basophil% 0.9 % (0-1); Eosinophil# 0.03 X10^3/uL; Eosinophils% 0.5 % (0-5); Hematocrit 46.1 % (40-54); Hemoglobin 15.6 g/dl (13.0-16.5); Lymphocyte # 1.99 X10^3/ul (4.0); Lymphocyte % 31.1 % (19-41); Mean Corp Hgb Conc 33.8 g/gl (32-36); Mean Corpuscular Hgb 29.8 pg (27.0-32.0); Mean Corpuscular Volume 88.1 fL (80-94); Mean Platelet Vol. 8.5 fl (6.2-12.0); Monocyte# 0.34 X10^3/uL; Monocyte% 5.3 % (0-10); Neutrophil # 3.97 X10^3/uL (2.7-7.7); Platelet Count 310 K/mm3 (150-450); RBC Distribution Width CV 13.5 % (11.6-14.6); Red Blood Count 5.23 M/mm3 (4.6-6.2); White Blood Count 6.4 K/mm3 (4.4-11.0)
[2018-11-29 20:43] LABS: POSITIVE COUNT NO; POSITIVE DIFFERENTIAL NO; POSITIVE MORPHOLOGY NO
[2018-11-29 20:51] LABS: AST(SGOT) 46 U/L (15-37); Alanine Aminotransfer ALT/SGPT 53 U/L (16-61); Albumin, Serum 3.8 g/dL (3.2-5.0); Alkaline Phosphatase 77 U/L (45-117); Anion Gap 10 (5-15); BUN 9 mg/dL (7-18); BUN/Creat Ratio 9.5 RATIO (10-20); Bilirubin, Direct 0.12 mg/dL (0.00-0.30); Calcium,Total 8.1 mg/dL (8.5-10.1); Chloride 103 mmol/L (98-107); Creatinine, Serum 0.94 mg/dL (0.70-1.30); EST Glomerular Filtration Rate 96 mL/min (>60); Est Glom Filt Rate - Afr Amer 116 mL/min (>60); Globulin 3.4 g/dL (2.2-4.2); Glucose 99 mg/dL (74-106); Lipase 157 U/L (73-393); Potassium 3.7 mmol/L (3.5-5.1); Protein, Total 7.2 g/dL (6.4-8.2); Sodium Level 141 mmol/L (136-145)
[2018-11-29 21:11] LABS: Amphetamine Urine VISTA NEGATIVE (<1000 ng/mL); Barbiturate Urine VISTA NEGATIVE (< 200 ng/mL); Benzodiazepine Urine VISTA NEGATIVE (< 200 ng/mL); Cocaine Urine VISTA NEGATIVE (< 300 ng/mL); Ecstacy Urine VISTA NEGATIVE (< 500 ng/mL); Methadone Urine VISTA NEGATIVE (< 300 ng/mL); PCP Urine VISTA NEGATIVE (< 25 ng/mL); THC Urine VISTA NEGATIVE (< 50 ng/mL); Vista UDS pH Range 6
[2018-11-29 21:57] VITALS: BP 121/80; PULSE 83; RESP 16; TEMP 37.1; O2SAT 95
--- NOTE | 2018-11-29 22:18 | PCM.HP.STD ---
Problem List (1) Alcohol dependence Status: Chronic (2) HTN (hypertension) Status: Chronic (3) Depression Status: Chronic History of Present Illness Date of Admission: 11/29/18 Chief Complaint: Alcohol abuse The patient is a 38 year old M with PMH as below who presents with alcohol abuse. He states that he went through rehab with [facility] about a month ago and then relapsed. He drinks about a liter and a half of 20 proof vodka, daily. He has had multiple episodes of rehab that did not require admission to NICU. He states that they usually does well with the protocol that we have. His last drink was this morning at 10 AM because he got into an argument with his girlfriend who requested that he stop drinking. He also has a custody dispute with his ex-, which leads to the stress of drinking, and he is afraid that he was grossly of his kids if he continues to drink. Past Medical History Past Medical History (Chronic Problems): Chronic Problems Alcohol dependence (Chronic) Nicotine abuse (Chronic) HTN (hypertension) (Chronic) Depression (Chronic) Allergies No Known Allergies Allergy (Verified 11/29/18 17:21) Home Medications: Ambulatory Orders Medication Instructions Recorded Amlodipine Besylate 10 mg PO DAILY 09/07/18 Aripiprazole [Abilify] 5 mg PO DAILY 11/29/18 Buspirone HCl 5 mg PO TID 11/29/18 Surgical History: no surgical history Psychiatric History: Anxiety, Depression Smoking Status: Never smoker Alcohol: Heavy Drugs: None - *Family History Maternal History Items: - - Depression, anxiety and alcoholism Paternal History Items: - - Depression, anxiety and alcoholism Review of Systems Constitutional: Denies: Chills, Fever, Weight Change HEENT: Denies: Head Aches, Sinus Congestion, Sinus Drainage Cardiovascular: Denies: Chest Pain, Palpitations Respiratory: Denies: Cough, Shortness of breath at rest, Sputum production Gastrointestinal: Denies: Abdominal Pain, Nausea, Vomiting Genitourinary: Denies: Dysuria Musculoskeletal: Denies: Joint Pain, Joint Tenderness Skin: Denies: Rash, Wounds Neurological: Reports: Tremor. Denies: Focal weakness, Numbness, Tingling Psychiatric: Reports: Anxiety. Denies: Depression Hematologic/ Lymphatic: Denies: Easy Bruising, Easy Bleeding VTE Information - Inpt Only VTE Present on Admission: No - Physical Exam General: Alert, Oriented x3, Cooperative, No apparent distress HEENT: Atraumatic, PERRLA, EOMI, Normocephalic Oral: Moist Mucosa Neck: Supple, No JVD, Trachea Midline Lungs: Clear to auscultation, Normal air movement, No rhonchi, No wheeze, No rales Cardiovascular: Regular rate, Regular Rhythm, Normal S1, Normal S2, No murmurs Abdomen: Soft, Non Tender, Non-Distended, No Hepato-splenomegaly Extremities: No edema, Capillary Refill Less than 3 Seconds Skin: No rashes, No breakdown Neurological: Neuro grossly intact, Sensory exam intact to light touch and pain Psych/Mental Status: Normal Affect, Appropriate Vital Signs Temp Pulse Resp BP Pulse Ox 98.7 F 83 16 121/80 H 95 11/29/18 21:57 11/29/18 21:57 11/29/18 21:57 11/29/18 21:57 11/29/18 21:57 Oxygen Delivery Method Room Air Weight: 214 lb 11.684 oz Body Mass Index (BMI) 27.6 Laboratory Tests Past 24 Hrs 11/29/18 11/29/18 11/29/18 20:05 20:05 20:05 WBC 6.4 RBC 5.23 Hgb 15.6 Hct 46.1 MCV 88.1 MCH 29.8 MCHC 33.8 RDW 13.5 RDW Differential 44.0 H Plt Count 310 MPV 8.5 Immature Gran % (Auto) 0.200 Neut % (Auto) 62.0 Lymph % (Auto) 31.1 Bandera % (Auto) 5.3 Eos % (Auto) 0.5 Baso % (Auto) 0.9 Absolute Neuts (auto) 4.0 Absolute Lymphs (auto) 1.99 Total Counted Not Reportable Sodium 141 Potassium 3.7 Chloride 103 Carbon Dioxide 28.0 Anion Gap 10 BUN 9 Creatinine 0.94 Estim Creat Clear Calc 125.10 Est GFR (MDRD) Af Amer 116 Est GFR (MDRD) Non-Af 96 BUN/Creatinine Ratio 9.5 L Glucose 99 Calcium 8.1 L Total Bilirubin 0.40 Direct Bilirubin 0.12 AST 46 H ALT 53 Alkaline Phosphatase 77 Total Protein 7.2 Albumin 3.8 Globulin 3.4 Lipase 157 Urine Opiates Screen Urine Methadone Screen Ur Barbiturates Screen Ur Phencyclidine Scrn Ur Amphetamines Screen U Methamphetamin-MDMA U Benzodiazepines Scrn Urine Cocaine Screen U Cannabinoids Screen Ur Drug Screen Comment Ethyl Alcohol 274.0 11/29/18 20:48 WBC RBC Hgb Hct MCV MCH MCHC RDW RDW Differential Plt Count MPV Immature Gran % (Auto) Neut % (Auto) Lymph % (Auto) Band[place] % (Auto) Eos % (Auto) Baso % (Auto) Absolute Neuts (auto) Absolute Lymphs (auto) Total Counted Sodium Potassium Chloride Carbon Dioxide Anion Gap BUN Creatinine Estim Creat Clear Calc Est GFR (MDRD) Af Amer Est GFR (MDRD) Non-Af BUN/Creatinine Ratio Glucose Calcium Total Bilirubin Direct Bilirubin AST ALT Alkaline Phosphatase Total Protein Albumin Globulin Lipase Urine Opiates Screen NEGATIVE Urine Methadone Screen NEGATIVE Ur Barbiturates Screen NEGATIVE Ur Phencyclidine Scrn NEGATIVE Ur Amphetamines Screen NEGATIVE U Methamphetamin-MDMA NEGATIVE U Benzodiazepines Scrn NEGATIVE Urine Cocaine Screen NEGATIVE U Cannabinoids Screen NEGATIVE Ur Drug Screen Comment Ethyl Alcohol Assessment/Plan All Active Problems Alcohol withdrawal (Acute) 1. Alcohol abuse -Here for rehab, will proceed with [facility] protocol -CIWA of 2 2. HTN -Much improved now with the Ativan and had a systolic of 120 -Obtain with his home dose of Norvasc 3. Depression/anxiety -Stable -We will continue with his Abilify and his BuSpar DVT: Ambulation Code Visit Inpatient E&M: 05230 Init Hosp L2
[2018-11-29 22:26] VITALS: BP 142/88; PULSE 87; RESP 16; TEMP 37.1; O2SAT 96
[2018-11-29] MEDS: chlordiazePOXIDE 25 MG Capsule PO (22:31)
[2018-11-29 22:32] VITALS: BMI 28.0
[2018-11-29 22:40] VITALS: BMI 28.1
[2018-11-30] MEDS: chlordiazePOXIDE 25 MG Capsule PO ×4 (04:21→23:34)
[2018-11-30 04:24] VITALS: BP 111/66; PULSE 68; RESP 16; TEMP 36.8; O2SAT 94
[2018-11-30 07:32] VITALS: BP 119/75; PULSE 66; RESP 16; TEMP 36.6; O2SAT 96
--- NOTE | 2018-11-30 07:41 | PCM.PROGNOTE ---
Subjective: The patient is a 38-year-old male with past medical history of alcohol dependence, hypertension and depression who presented to the emergency room at [facility] requesting admission for acute alcohol withdrawal. Afebrile Vital signs stable with no tachycardia and no significant rise in blood pressure Room air pulse ox ranges from 94 to 96%. Lab at admission showed an unremarkable CBC and unremarkable BMP. LFTs were also unremarkable and the lipase was within normal limits. Tox screen was negative for any illicit drugs. Ethyl alcohol was 274. His complaint at admission was tremors. - Physical Exam General: Alert, Oriented x3, Cooperative, Well developed, Well nourished HEENT: Atraumatic, Normocephalic Oral: Moist Mucosa Lungs: Clear to auscultation Cardiovascular: Regular rate, Regular Rhythm, No murmurs, No Gallop Abdomen: Bowel Sounds Present, Soft, Non Tender, Non-Distended Extremities: No clubbing, No cyanosis, No edema Skin: No rashes, No breakdown Neurological: Cranial nerves II-XII grossly intact, Neuro grossly intact, - - Tremors of his hands but no asterixis Psych/Mental Status: Normal Affect, Appropriate Vital Signs Temp Pulse Resp BP Pulse Ox 97.9 F 66 16 119/75 96 11/30/18 07:32 11/30/18 07:32 11/30/18 07:32 11/30/18 07:32 11/30/18 07:32 Oxygen Delivery Method Room Air Weight: 218 lb 7.649 oz Body Mass Index (BMI) 28.0 Laboratory Tests Past 24 Hrs 11/29/18 11/29/18 11/29/18 20:05 20:05 20:05 WBC 6.4 RBC 5.23 Hgb 15.6 Hct 46.1 MCV 88.1 MCH 29.8 MCHC 33.8 RDW 13.5 RDW Differential 44.0 H Plt Count 310 MPV 8.5 Immature Gran % (Auto) 0.200 Neut % (Auto) 62.0 Lymph % (Auto) 31.1 Jay % (Auto) 5.3 Eos % (Auto) 0.5 Baso % (Auto) 0.9 Absolute Neuts (auto) 4.0 Absolute Lymphs (auto) 1.99 Total Counted Not Reportable Sodium 141 Potassium 3.7 Chloride 103 Carbon Dioxide 28.0 Anion Gap 10 BUN 9 Creatinine 0.94 Estim Creat Clear Calc 125.10 Est GFR (MDRD) Af Amer 116 Est GFR (MDRD) Non-Af 96 BUN/Creatinine Ratio 9.5 L Glucose 99 Calcium 8.1 L Total Bilirubin 0.40 Direct Bilirubin 0.12 AST 46 H ALT 53 Alkaline Phosphatase 77 Total Protein 7.2 Albumin 3.8 Globulin 3.4 Lipase 157 Urine Opiates Screen Urine Methadone Screen Ur Barbiturates Screen Ur Phencyclidine Scrn Ur Amphetamines Screen U Methamphetamin-MDMA U Benzodiazepines Scrn Urine Cocaine Screen U Cannabinoids Screen Ur Drug Screen Comment Ethyl Alcohol 274.0 11/29/18 20:48 WBC RBC Hgb Hct MCV MCH MCHC RDW RDW Differential Plt Count MPV Immature Gran % (Auto) Neut % (Auto) Lymph % (Auto) Jay % (Auto) Eos % (Auto) Baso % (Auto) Absolute Neuts (auto) Absolute Lymphs (auto) Total Counted Sodium Potassium Chloride Carbon Dioxide Anion Gap BUN Creatinine Estim Creat Clear Calc Est GFR (MDRD) Af Amer Est GFR (MDRD) Non-Af BUN/Creatinine Ratio Glucose Calcium Total Bilirubin Direct Bilirubin AST ALT Alkaline Phosphatase Total Protein Albumin Globulin Lipase Urine Opiates Screen NEGATIVE Urine Methadone Screen NEGATIVE Ur Barbiturates Screen NEGATIVE Ur Phencyclidine Scrn NEGATIVE Ur Amphetamines Screen NEGATIVE U Methamphetamin-MDMA NEGATIVE U Benzodiazepines Scrn NEGATIVE Urine Cocaine Screen NEGATIVE U Cannabinoids Screen NEGATIVE Ur Drug Screen Comment Ethyl Alcohol Medical Necessity - Tobacco Use Smoking Status: Never smoker Assessment/Plan All Active Problems Alcohol withdrawal (Acute) Impressions 1. Acute alcohol withdrawal 2. Alcohol dependence 3. Hypertension 4. Anxiety/depression Restart Abilify, BuSpar and amlodipine Continue [facility] protocol for acute alcohol withdrawal Code Visit Inpatient E&M: 30841 Subs Hosp L2
[2018-11-30] MEDS: Folic Acid 1 MG Tablet PO (07:46)
[2018-11-30] MEDS: Thiamine Hydrochloride 100 MG Tablet PO (07:46)
[2018-11-30] MEDS: Multivitamins,Therapeutic Tablet 1 TABLET PO (07:46)
[2018-11-30] MEDS: hydrOXYzine PAM 25 MG Capsule 50 MG PO (11:06)
[2018-11-30 13:21] VITALS: BP 149/97; PULSE 86; RESP 16; TEMP 37.6; O2SAT 98
[2018-11-30] MEDS: ARIPiprazole 5 MG Tablet PO (14:42)
[2018-11-30] MEDS: busPIRone 5 MG Tablet PO ×2 (14:42→20:45)
[2018-11-30] MEDS: amLODIPine 10 MG Tablet PO (14:42)
--- NOTE | 2018-11-30 15:59 | CHAPLAIN ---
Type of Pastoral Visit _x__ Initial Visit ___ Follow-up Visit ___ On-call Visit ___ General Patient Visit ___ Spiritual Assessment ___ Family Conference ___ Bereavement ___ Rapid Response ___ Code Blue ___ Other (describe below) Pastoral Care Referral From ___ Patient ___ Family ___ Nurse ___ Physician ___ Carriage Operator ___ Bench Mechanic ___ Other (describe below) Sacrament/Intervention ___ Active listening ___ Anointing ___ Yazidism ___ Bereavement ___ Communion ___ Yasmin exploration ___ ___ Life review ___ Prayer ___ Reconciliation ___ Sacrament of Sick _x__ Supportive presence ___ Wedding ___ Other (describe below) Pastoral Comments patient had family members in room with him; pt was seen in previous admission; this was a brief offer of support as desired by pt;
[2018-11-30 18:09] VITALS: BP 140/99; PULSE 77; RESP 16; TEMP 36.7
--- NOTE | 2018-11-30 18:29 | NEWVISION ---
Patient has a pending appointment at [facility]. Counselor from agency is to call patient to schedule the appointment, however the phone thai masseur told the patient that it would sometime the week of the . Patient to receive mental health, medication(s) to address mental health, AOD counseling.
[2018-11-30 20:47] VITALS: BP 152/87; PULSE 77; RESP 16; TEMP 36.8
[2018-12-01] VITALS (9 sets, daily range): BP systolic 124–148; BP diastolic 84–91; PULSE 56–106; RESP 16–20; TEMP 36.6–37; O2SAT 97–99
[2018-12-01] MEDS: busPIRone 5 MG Tablet PO ×3 (06:15→21:38)
[2018-12-01] MEDS: Multivitamins,Therapeutic Tablet 1 TABLET PO (08:03)
[2018-12-01] MEDS: Thiamine Hydrochloride 100 MG Tablet PO (08:03)
[2018-12-01] MEDS: Folic Acid 1 MG Tablet PO (08:03)
[2018-12-01] MEDS: chlordiazePOXIDE 25 MG Capsule PO ×2 (08:42→16:48)
--- NOTE | 2018-12-01 08:50 | PCM.PROGNOTE ---
Subjective: Chief complaint: Follow-up after admission for acute alcohol withdrawal. Patient seen and examined. No acute events overnight. He denies any significant complaints. Symptoms improved, no more anxiety or restlessness. His vital signs are stable. - Physical Exam General: Alert, Oriented x3, Cooperative, No apparent distress HEENT: Atraumatic, PERRLA, EOMI, Normocephalic Oral: Moist Mucosa, No Gingival or Mucosal Lesions/ Ulcerations Neck: Supple, No JVD, Negative Carotid Bruits, Trachea Midline, Thyroid Normal Size and Texture Lungs: Clear to auscultation, Normal air movement, No rhonchi, No wheeze, No rales Cardiovascular: Regular rate, Regular Rhythm, Normal S1, Normal S2, PMI Normal Abdomen: Bowel Sounds Present, Soft, Non Tender, Non-Distended, No Hepato-splenomegaly Extremities: No clubbing, No cyanosis, No edema Skin: No rashes, No breakdown Lymphatic: No Cervical, Supraclavicular, or Inguinal Adenopathy Neurological: Cranial nerves II-XII grossly intact, Neuro grossly intact Psych/Mental Status: Normal Affect, Appropriate, Alert and oriented to time, place, person, mood and affect Vital Signs Temp Pulse Resp BP Pulse Ox 98 F 80 20 H 148/86 H 97 12/01/18 08:06 12/01/18 08:06 12/01/18 08:06 12/01/18 08:06 12/01/18 08:06 Oxygen Delivery Method Room Air Weight: 218 lb 7.649 oz Body Mass Index (BMI) 28.0 Medical Necessity - Tobacco Use Smoking Status: Never smoker Assessment/Plan All Active Problems Alcohol withdrawal (Acute) This is a 58 years old male patient of his requesting admission for acute alcohol withdrawal for medical stabilization. #1 acute alcohol intoxication/withdrawal: He is on tapering course of Librium, PRN Ativan, folic acid and thiamine supplement as well as multivitamins. Also, he is on Bentyl, Vistaril and, methocarbamol and Zofran. His routine blood work was unremarkable. LFTs and lipase were normal. On admission, blood alcohol level was 274. Urine drug screen was negative. Patient symptoms improved. His vital signs are stable. Plan to continue same treatment, DC home tomorrow morning. #2 hypertension: Blood pressure stable, continue Norvasc. #3 anxiety/depression: Stable, continue Abilify and BuSpar. #4 DVT prophylaxis: Low risk patient, no prophylaxis indicated. This note was generated with [employer] software. It may contain incorrect words, spelling, and punctuation that were not noted in checking the note before signing. Code Visit Inpatient E&M: 31152 Subs Hosp L2
[2018-12-01] MEDS: amLODIPine 10 MG Tablet PO (10:02)
[2018-12-01] MEDS: ARIPiprazole 5 MG Tablet PO (10:02)
[2018-12-02] MEDS: chlordiazePOXIDE 25 MG Capsule 50 MG PO (00:40)
[2018-12-02 06:18] VITALS: BP 135/74; PULSE 65; RESP 18; TEMP 36.6; O2SAT 99
[2018-12-02 06:19] VITALS: BP 135/74; PULSE 65; RESP 18; TEMP 36.6
[2018-12-02] MEDS: busPIRone 5 MG Tablet PO (06:20)
--- NOTE | 2018-12-02 07:55 | DCINST_ITS ---
You will use the following diet at home:: Cardiac Your food should be the consistency of: Regular Discharge Activity: Return to Normal Activity Weight Bearing Status: Full weight bearing Call your doctor if you observe: Fever of 101 or Higher, Shortness of breath, Dizziness, Fainting spells, Chest pain, Increased palpitations (irregular heartbeat), Uncontrolled pain Additional Instructions: Please follow-up with the [facility] program. Allergies/Adverse Reactions: Allergies No Known Allergies Allergy (Verified 11/29/18 17:21) Medications to take at Discharge Amlodipine Besylate 10 mg PO DAILY 09/07/18 Aripiprazole [Abilify] 5 mg PO DAILY 11/29/18 Buspirone HCl 5 mg PO TID 11/29/18 Folic Acid 0.4 mg PO DAILY@0800 #30 tablet 12/02/18 Thiamine HCl 100 mg PO DAILY #30 tablet 12/02/18 The following prescriptions were given: Folic Acid 0.4 mg PO DAILY@0800 #30 tablet Thiamine HCl 100 mg PO DAILY #30 tablet Primary Care Physician: Gulshan Grove NP-C [Primary Care Provider] - Please follow up with your Primary Care Physician in: 2-4 weeks. Test Results: Test results from this visit will be discussed in further detail at your follow- up appointment, if applicable.
[2018-12-02] MEDS: Thiamine Hydrochloride 100 MG Tablet PO (08:38)
[2018-12-02] MEDS: Multivitamins,Therapeutic Tablet 1 TABLET PO (08:38)
[2018-12-02] MEDS: Folic Acid 1 MG Tablet PO (08:38)
[2018-12-02 10:00] VITALS: BP 159/97; PULSE 89; RESP 20; TEMP 36.6
[2018-12-02] MEDS: ARIPiprazole 5 MG Tablet PO (11:15)
[2018-12-02] MEDS: amLODIPine 10 MG Tablet PO (11:15)
--- NOTE | 2018-12-02 11:38 | PCM.DC.SUM ---
Discharge Date and Diagnosis Date of Admission: 11/29/18 Date of Discharge: 12/02/18 - Primary Discharge Diagnosis Acute alcohol intoxication/withdrawal admitted for medical stabilization. - Secondary Discharge Diagnosis Chronic Problems Alcohol dependence (Chronic) Nicotine abuse (Chronic) HTN (hypertension) (Chronic) Depression (Chronic) Hospital Course and Treatment Operations: None Procedures: None Summary of Care Provided: Patient seen and examined on the day of discharge and appeared to be stable to be discharged home. They mentioned that his symptoms significantly improved. His vital signs are stable. The patient is a 38 year old M presented to the [facility] office requesting admission for acute alcohol withdrawal for medical stabilization. Patient admitted drinking about a liter and half of vodka daily. He went to rehabilitation with [facility] in the past but he relapsed. [facility] and started on [facility] protocol with tapering course of Librium and Ativan, folic acid and thiamine supplement as well as multivitamins and as needed Bentyl, Vistaril, methocarbamol and Zofran. His routine blood work was unremarkable.. LFT and lipase were normal. Urine drug screen was negative. Blood alcohol level was 274. With above-mentioned treatment, patient symptoms improved and he did very well. His vital signs remain stable. Patient discharged home in a stable medical condition, discharged on folic acid and thiamine supplement, continued on Norvasc, Abilify and buspirone, recommended to follow-up with [facility] program as outpatient, follow-up with PCP in 2 to 4 weeks. - Physical Exam General: Alert, Oriented x3, Cooperative, No apparent distress HEENT: Atraumatic, PERRLA, EOMI, Normocephalic Oral: Moist Mucosa, No Gingival or Mucosal Lesions/ Ulcerations Neck: Supple, No JVD, Negative Carotid Bruits, Trachea Midline, Thyroid Normal Size and Texture Lungs: Clear to auscultation, Normal air movement, No rhonchi, No wheeze, No rales Cardiovascular: Regular rate, Regular Rhythm, Normal S1, Normal S2, PMI Normal Abdomen: Bowel Sounds Present, Soft, Non Tender, Non-Distended, No Hepato-splenomegaly Extremities: No clubbing, No cyanosis, No edema Skin: No rashes, No breakdown Lymphatic: No Cervical, Supraclavicular, or Inguinal Adenopathy Neurological: Cranial nerves II-XII grossly intact, Neuro grossly intact Psych/Mental Status: Normal Affect, Appropriate Vital Signs Temp Pulse Resp BP Pulse Ox 97.8 F 89 20 H 159/97 H 99 12/02/18 10:00 12/02/18 10:00 12/02/18 10:00 12/02/18 10:00 12/02/18 06:18 Oxygen Delivery Method Room Air Weight: 218 lb 7.649 oz Body Mass Index (BMI) 28.0 Intake and Output for Last 24 Hours 11/30/18 12/01/18 12/02/18 23:59 23:59 23:59 Intake Total 960 / 960 600 / 600 Balance 960 / 960 600 / 600 Discharge Activity: Return to Normal Activity Weight Bearing Status: Full weight bearing Call your doctor if you observe: Fever of 101 or Higher, Shortness of breath, Dizziness, Fainting spells, Chest pain, Increased palpitations (irregular heartbeat), Uncontrolled pain Home Medications: Medications to take at Discharge Amlodipine Besylate 10 mg PO DAILY 09/07/18 Aripiprazole [Abilify] 5 mg PO DAILY 11/29/18 Buspirone HCl 5 mg PO TID 11/29/18 Folic Acid 0.4 mg PO DAILY@0800 #30 tablet 12/02/18 Thiamine HCl 100 mg PO DAILY #30 tablet 12/02/18 Following Prescrptions Were Given to Patient: Folic Acid 0.4 mg PO DAILY@0800 #30 tablet Thiamine HCl 100 mg PO DAILY #30 tablet Primary Care Physician: Gulshan Grove NP-C [Primary Care Provider] - Please follow up with your Primary Care Physician in: 2-4 weeks. Disposition: Home Minutes spent on discharge:: 25 Patient Condition:: Stable Medical Necessity - Tobacco Use Smoking Status: Never smoker Meaningful Use Info Meaningful Use Diagnoses (Choose all that apply): None applicable Code Visit Inpatient E&M: 66089 Disch Hosp
[2018-12-02 11:55] VITALS: BP 150/90; PULSE 88; RESP 20; TEMP 36.6; O2SAT 100
[2018-12-02] MEDS: chlordiazePOXIDE 25 MG Capsule PO (12:01)
== END 2018-12-02 12:00 | disposition home or self-care (01) | DRG 775 ==
LOC: ED 20:16 → MS2 22:19
PROVIDERS: Admitting Provider Family Medicine; Emergency Provider Emergency Medicine; Family Provider Nurse Practitioner Primary Care; PCP Nurse Practitioner Primary Care; Referring Provider Family Medicine; Visit Provider Hospitalist
DX: F10.239 Alcohol dependence with withdrawal, unspecified (principal); I10 Essential (primary) hypertension; Y90.8 Blood alcohol level of 240 mg/100 ml or more; F10.229 Alcohol dependence with intoxication, unspecified; Z72.0 Tobacco use; F32.9 Major depressive disorder, single episode, unspecified
CPT/HCPCS: 80048; 80076; 80307; 80320; 83690; 85025; 99284; 99406; J7030; G0480; J2405

== ENCOUNTER 2019-01-04 12:40 | Emergency (ER) | payer MEDICAID, SELFPAY ==
[2019-01-04 12:43] VITALS: BP 137/98; PULSE 95; RESP 16; TEMP 36.8; O2SAT 95; BMI 29.0
[2019-01-04 13:39] LABS: Absolute Lymphocyte Count 2.19 X10^3/ul (0.83-4.51); Basophil# 0.09 X10^3/uL; Basophil% 1.3 % (0-1); Eosinophil# 0.04 X10^3/uL; Eosinophils% 0.6 % (0-5); Hematocrit 45.6 % (40-54); Hemoglobin 15.5 g/dl (13.0-16.5); Lymphocyte # 2.19 X10^3/ul (4.0); Lymphocyte % 31.7 % (19-41); Mean Corpuscular Hgb 30.3 pg (27.0-32.0); Mean Corpuscular Volume 89.2 fL (80-94); Mean Platelet Vol. 8.2 fl (6.2-12.0); Monocyte# 0.56 X10^3/uL; Monocyte% 8.1 % (0-10); Neutrophil # 4.01 X10^3/uL (2.7-7.7); Platelet Count 286 K/mm3 (150-450); RBC Distribution Width CV 14.6 % (11.6-14.6); RBC Distribution Width SD 47.3 fl (35.1-43.9); Red Blood Count 5.11 M/mm3 (4.6-6.2); White Blood Count 6.9 K/mm3 (4.4-11.0)
[2019-01-04 13:40] LABS: POSITIVE COUNT NO; POSITIVE DIFFERENTIAL NO; POSITIVE MORPHOLOGY NO
--- NOTE | 2019-01-04 13:45 | ED.VIS.GEN ---
History of Present Illness Chief Complaint: ETOH Intox Narrative: 38-year-old male presents requesting alcohol detox. He has a long history of alcohol dependence. He has been in detox facilities multiple times including [facility] here 3 times. He states that he was already accepted at a private pay facility locally and he is just here for medical clearance labs. He admits to drinking alcohol all morning. He is here with his and mother. He denies suicidal thoughts or ideation and they do not have a concern for suicidal intent. Past Medical History - Allergies and Home Meds Allergies/Adverse Reactions: Allergies No Known Allergies Allergy (Verified 11/29/18 17:21) Primary Care Physician: Gulshan Grove NP-C [Primary Care Provider] - Prior records reviewed: Yes Surgical History: no surgical history Smoking Status: Former smoker - Family History Maternal Family History: Reports: - - Depression, anxiety and alcoholism Paternal Family History: Reports: - - Depression, anxiety and alcoholism Review of Systems All systems negative except as indicated General: Denies: Chills, Fever, Sweats Eyes: Denies: Visual changes - bilaterally, Diplopia ENT: Denies: Rhinorrhea, Sore throat Cardiovascular: Denies: Chest pain, Palpitations Respiratory: Denies: Dyspnea, Cough, Dyspnea on exertion Gastrointestinal: Denies: Abdominal pain, Nausea, Vomiting, Diarrhea, Melena, Hematochezia Genitourinary: Denies: Dysuria, Hematuria, Frequency Musculoskeletal: Denies: Back pain, Extremity Pain Skin: Denies: Rash, Wounds Neurological: Denies: Headache, Weakness, Numbness Psych: Reports: Anxiety. Denies: Depression, Suicidal thoughts, Suicidal ideations Hematologic: Denies: Easy bruising, Easy bleeding Physical Exam Vital Signs/Narrative: Vital Signs Temp Pulse Resp BP Pulse Ox 01/04/19 12:43 98.2 F 95 16 137/98 H 95 General: Well nourished, Well developed, No Acute Distress Head: Normocephalic, Atraumatic Eyes: Perrl, EOMI ENT: Moist mucous membranes, No rhinorrhea Neck: Supple, Nontender Cardiovascular: Regular rate, Regular rhythm, No murmurs Respiratory: No distress, CTA bilaterally, Chest nontender Abdomen: Soft, Nontender, Nondistended, Normal bowel sounds Back: Nontender, Normal Inspection Extremities: Nontender, No edema Skin: Normal color, No rash Neurological: Alert, Oriented x3, Cranial nerves II-XII grossly intact, Normal Strength, Normal Sensation Psychological: - - He does appear slightly intoxicated but he is still mentating reasonably well and answering questions appropriate. He denies suicidal thoughts or ideation. Diagnostic/Tx/Re-eval - Medical Decision Making I ordered his medical clearance labs. Before they were resulted, his got him accepted at a different facility that apparently is able to use the laboratory studies he had done last night at a different hospital but they wanted to leave right away to go there because he is apparently getting the last bed at the facility and he has to be there by the close of the business day. He therefore was signed out AMA with his mother and . I did not have a chance to go back in and speak with him before they left but from my standpoint, I feel that he does have the capacity to refuse care and there was no concern family members for suicidal risk. This is a fairly chronic issue for him and he was here voluntarily to receive detox. ED Disposition - Plan for ED Patient: Disposition: Against Medical Advice Diagnosis: Alcohol dependence Referrals: Gulshan Grove NP-C [Primary Care Provider] -
[2019-01-04 13:52] LABS: AST(SGOT) 42 U/L (15-37); Alanine Aminotransfer ALT/SGPT 47 U/L (16-61); Albumin, Serum 3.5 g/dL (3.2-5.0); Alkaline Phosphatase 71 U/L (45-117); Anion Gap 7 (5-15); BUN 12 mg/dL (7-18); BUN/Creat Ratio 11.1 RATIO (10-20); Bilirubin, Direct 0.08 mg/dL (0.00-0.30); Calcium,Total 7.7 mg/dL (8.5-10.1); Chloride 109 mmol/L (98-107); Creatinine, Serum 1.08 mg/dL (0.70-1.30); EST Glomerular Filtration Rate 82 mL/min (>60); Est Glom Filt Rate - Afr Amer 99 mL/min (>60); Estimated Creatinine Clearance 108.88 ml/min; Globulin 3.4 g/dL (2.2-4.2); Glucose 89 mg/dL (74-106); Lipase 149 U/L (73-393); Potassium 3.6 mmol/L (3.5-5.1); Protein, Total 6.9 g/dL (6.4-8.2); Sodium Level 144 mmol/L (136-145)
[2019-01-04 14:08] LABS: Amphetamine Urine VISTA NEGATIVE (<1000 ng/mL); Barbiturate Urine VISTA NEGATIVE (< 200 ng/mL); Benzodiazepine Urine VISTA NEGATIVE (< 200 ng/mL); Cocaine Urine VISTA NEGATIVE (< 300 ng/mL); Ecstacy Urine VISTA NEGATIVE (< 500 ng/mL); Methadone Urine VISTA NEGATIVE (< 300 ng/mL); PCP Urine VISTA NEGATIVE (< 25 ng/mL); THC Urine VISTA NEGATIVE (< 50 ng/mL); Vista UDS pH Range 6
--- NOTE | 2019-01-04 14:09 | ED.RN ---
ADITYA RN NOTIFIED ETOH 370
== END 2019-01-04 14:22 | disposition left against medical advice (07) ==
PROVIDERS: Emergency Provider Emergency Medicine; Family Provider Nurse Practitioner Primary Care; PCP Nurse Practitioner Primary Care
DX: F10.20 Alcohol dependence, uncomplicated (principal); Y90.9 Presence of alcohol in blood, level not specified; Z87.891 Personal history of nicotine dependence
CPT/HCPCS: 80048; 80076; 80307; 80320; 83690; 85025; 99284; A4216; G0480

== ENCOUNTER 2019-05-10 06:56 | Day surgery (SDC) | payer MEDICAID, SELFPAY ==
[2019-05-10 07:13] VITALS: BP 138/91; PULSE 72; RESP 16; TEMP 36.6; O2SAT 98; BMI 28.8
[2019-05-10] MEDS: Lactated Ringers 1,000 ML 100 ML IV (07:29)
--- NOTE | 2019-05-10 08:30 | CYST_PTH ---
PATIENT: YEE BUSTILLO LOC: [facility] [place] U#:[id number] AGE/SX: 38/M ROOM: RE05/10/[address]: Dr. Roosevelt Boyce MD : 1980 BED: DIS: 05/10/2019 SPEC #: [id number] RECD: 05/10/19 12:58 STATUS: MIREILLE RERay #: [id number] ENOCH: 05/10/19 08:[address]: Roosevelt Boyce DEPT: SURGICAL PATHOLOGY RECD BY: Gulshan Hart ENTERED: 05/10/19 13:33 SP TYPE: Cyst OTHR DR: Gulshan Grove, ASSISTANT TEACHING PROFESSOR-C Tissues: CYST Procedures: Surgery Specimen Level III HEADER OPERATION: Excision sebaceous cyst, between eyes PRE-OP DIAGNOSIS: Sebaceous cyst between eyes TISSUE SUBMITTED: Sebaceous cyst between eyes MICROSCOPIC DIAGNOSIS Sebaceous cyst between eyes, excision: Consistent with epidermal inclusion cyst with focal chronic inflammation and foreign body giant cell reaction. SJ:braden 05/13/19 MICROSCOPIC DESCRIPTION Slides are reviewed. GROSS DESCRIPTION Received in fixative is one container labeled with the patient's name and designated sebaceous cyst from between eyes. The specimen consists of two irregular fragments of suarez soft tissue that in aggregate measure 1.2 x 0.3 x 0.1 cm. The entire specimen is submitted in one cassette. / SHAHID:braden 05/10/19 TC:5 CPT: 98726
--- NOTE | 2019-05-10 08:57 | PCM.OPRPT ---
Problem List (1) Infected sebaceous cyst Status: Acute Report of Operation Date of Procedure: 05/10/19 Pre-Operative Diagnosis: Infected sebaceous cyst of nasal dorsum Post-Operative Diagnosis: Same Surgery/Procedure Performed:: Excision of sebaceous cyst of nasal dorsum Description of Surgical Findings:: Eric is a 38-year-old male with a draining cyst over the nasal dorsum and impinging upon the medial aspect of the left eye. This had the appearance of an infected sebaceous cyst and given its location excision was offered for relief. The risks, alternatives, potential complications, and benefits were discussed at length and any questions answered to the patient and/or caregiver's satisfaction. Witnessed informed consent was obtained in the office, and the patient and/or caregiver was agreeable to proceed. Procedure went as follows: Patient was identified in the preoperative holding brought to the operating room was placed under conscious sedation. When appropriate anesthesia was obtained, the area was then injected with 1% lidocaine with 100,000 epinephrine for a total of 3 cc. After allowing for vasoconstriction, using a 15 blade scalpel a 1 cm incision was made over the lesion to the skin to the subcutaneous tissue. A sebaceous cyst was encountered. This was then dissected free from the surrounding soft tissues with care to avoid injury to the lacrimal apparatus which is immediately deep to the lesion. An ellipse of skin was then taken to encompass the cutaneous opening of the cyst this was then sent as pathologic specimen. The wound was then irrigated with saline solution and closed deeply with interrupted 4-0 Vicryl suture. Interrupted 5-0 Monocryl was then used to close the skin. The patient was then returned to anesthesia where he was advised without complication having tolerated the procedure well. Type of Anesthesia:: MAC Anesthesiologist: Vineet Rubi Special Medications: none Specimen's removed: sebaceous cyst of nasal dorsum Drains: none Estimated Blood Loss (mL): 0 mL Fluids Replaced: 300 mL Grafts/Implants Used: none - Complications none - Admit VTE Documentation VTE Present on Admission: No VTE Mechan Device Prophylaxis: SCD's VTE Pharm Prophylaxis ordered?: No
[2019-05-10 09:01] VITALS: BP 113/78; BP 138/91; PULSE 66; RESP 16; TEMP 36.3; O2SAT 95
--- NOTE | 2019-05-10 09:02 | DCINST_ITS ---
- Discharge Diagnoses Current Active Problems: Current Active and Chronic Problems Infected sebaceous cyst (Acute) You will use the following diet at home:: No restrictions Discharge Activity: Return to Normal Activity Call your doctor if your incision/area has: Sudden Increased Bleeding, Increased Redness, Foul Smelling Discharge Call your doctor if you observe: Fever of 101 or Higher, Uncontrolled pain Allergies/Adverse Reactions: Allergies No Known Allergies Allergy (Verified 05/10/19 07:12) Medications to take at Discharge Amlodipine Besylate 10 mg PO DAILY 09/07/18 Sertraline HCl 100 mg PO DAILY 01/04/19 Multivitamin with Minerals [Multiple Vitamin] 1 ea PO DAILY 05/08/19 Naltrexone Microspheres [Vivitrol] 380 mg IM QMONTH 05/08/19 Primary Care Physician: Gulshan Grove NP-C [Primary Care Provider] - Test Results: Test results from this visit will be discussed in further detail at your follow- up appointment, if applicable. Please Follow Up With: Roosevelt Boyce MD When: 1 week
[2019-05-10 09:05] VITALS: BP 114/77; BP 138/91; PULSE 67; RESP 16; O2SAT 96
[2019-05-10 09:10] VITALS: BP 111/75; BP 138/91; PULSE 64; RESP 16; O2SAT 96
[2019-05-10 09:16] VITALS: BP 116/70; BP 138/91; PULSE 63; RESP 16; TEMP 36.3; O2SAT 96
[2019-05-10 09:45] VITALS: BP 138/91
== END 2019-05-10 10:14 | disposition home or self-care (01) ==
LOC: SDC 06:58 → AC 06:59
PROVIDERS: Family Provider Nurse Practitioner Primary Care; PCP Nurse Practitioner Primary Care; Referring Provider Otolaryngology; Visit Provider Otolaryngology
PROC: (CPT 30999; principal; 2019-05-10 08:15)
DX: L72.3 Sebaceous cyst (principal); J45.909 Unspecified asthma, uncomplicated; I10 Essential (primary) hypertension; F41.9 Anxiety disorder, unspecified; F32.9 Major depressive disorder, single episode, unspecified; F17.200 Nicotine dependence, unspecified, uncomplicated; Z79.899 Other long term (current) drug therapy
CPT/HCPCS: 30999; 88304; J7120; J2405